=== PATIENT | female | born 1965 | race African-American/Black ===

== ENCOUNTER 2016-08-29 15:48 | Outpatient (CLI) | payer BC, OTHER | END 2016-08-29 15:49 | disposition home or self-care (01) | LOC: LABHHL 15:48 | PROVIDERS: ATTEND Surgery | DX: N63 Unspecified lump in breast (principal) | CPT/HCPCS: 88305; 88341; 88342; 88361 ==

== ENCOUNTER 2017-03-25 09:43 | Observation (INO) | payer BC ==
[2017-03-25] MEDS ORDERED: MARCAINE 0.5% INFILTRATI ONE (10:33)
[2017-03-25] MEDS ORDERED: DECADRON IV NR (10:33)
--- NOTE | 2017-03-25 10:37 | Anesthesia Consultation ---
Anesthesia Consult and Med Hx Date of service: 03/25/17 - Airway Anesthetic Teeth Evaluation: Good ROM Head & Neck: Adequate Mental/Hyoid Distance: Adequate Mallampati Class: Class II Intubation Access Assessment: Probably Good - Pulmonary Exam CTA: Yes - Cardiac Exam Cardiac Exam: RRR - Pre-Operative Health Status ASA Pre-Surgery Classification: ASA2 Proposed Anesthetic Plan: General (Never had GA - no family member ever had GA) Nerve Block: pectoral block - Central Nervous System Hx Psychiatric Problems: No - Other Systems Hx Alcohol Use: No Hx Substance Use: No Hx Cancer: Yes (breast canceer; s/p chemo)
--- NOTE | 2017-03-25 10:37 | Anesthesia Day of Surgery ---
Anesthesia Day of Surgery - Day of Surgery Patient Examined: Yes Patient H&P Reviewed: Yes Patient is NPO: Yes
[2017-03-25] MEDS ORDERED: ANCEF/STERILE WATER 2 GM/20 ML IV NR (11:00)
[2017-03-25] MEDS ORDERED: NEURONTIN PO SCH (11:00)
[2017-03-25] MEDS ORDERED: PEPCID PO NR (11:00)
[2017-03-25] MEDS ORDERED: LACTATED RINGERS 1,000 ML IV SCH ×2 (11:00→20:00)
[2017-03-25] MEDS: VERSED IV PRN ×3 (11:14→14:47)
[2017-03-25] MEDS ORDERED: XYLOCAINE 1% 20 mL ONE (12:09)
[2017-03-25] MEDS ORDERED: CLONIDINE 1,000 MCG/10 ML VIAL EP ONE (12:09)
[2017-03-25] MEDS ORDERED: BACITRACIN ONE (15:59)
[2017-03-25] MEDS ORDERED: GARAMYCIN ONE (15:59)
[2017-03-25] MEDS ORDERED: ANCEF ONE (15:59)
[2017-03-25] MEDS: ePHEDrine SULFATE IV PRN ×2 (16:00→16:14)
[2017-03-25] MEDS ORDERED: DILAUDID ONE (16:05)
[2017-03-25] MEDS ORDERED: XYLOCAINE MPF 2% ONE ×2 (16:05→20:05)
[2017-03-25] MEDS ORDERED: DIPRIVAN 10 MG/ML IV ONE (16:05)
[2017-03-25] MEDS ORDERED: ZEMURON IV ONE (16:05)
[2017-03-25] MEDS ORDERED: NACL P/F VIAL (10 ML) INFILTRATI ONE (16:45)
[2017-03-25] MEDS ORDERED: METHYLENE BLUE IRRIGATION ONE (16:45)
[2017-03-25] MEDS ORDERED: NEO SYNEPHRINE/NS Syringe(OR USE) IV ONE (17:00)
[2017-03-25] MEDS ORDERED: ANCEF IV ONE (17:02)
[2017-03-25] MEDS ORDERED: GARAMYCIN IV ONE (17:02)
[2017-03-25] MEDS ORDERED: NACL P/F VIAL (10 ML) IV ONE (17:02)
[2017-03-25] MEDS ORDERED: NACL 0.9% IR ONE (17:02)
[2017-03-25] MEDS ORDERED: BACITRACIN IR ONE (17:02)
[2017-03-25] MEDS ORDERED: WATER FOR IRRIG STERILE IR ONE (17:02)
[2017-03-25] MEDS ORDERED: DECADRON ONE (17:07)
[2017-03-25] MEDS ORDERED: ZOFRAN ONE (17:12)
[2017-03-25] MEDS ORDERED: ROBINUL ONE (17:12)
[2017-03-25] MEDS ORDERED: NEOSTIGMINE ONE (17:12)
[2017-03-25] MEDS ORDERED: LACTATED RINGERS 1,000 ML ONE ×2 (17:14→19:32)
[2017-03-25] MEDS ORDERED: NACL 0.9% 100 ML ONE (17:42)
[2017-03-25] MEDS ORDERED: TYLENOL PO PRN (19:13)
[2017-03-25] MEDS ORDERED: BENADRYL PO PRN (19:13)
[2017-03-25] MEDS ORDERED: REGLAN PO PRN (19:13)
[2017-03-25] MEDS ORDERED: ZOFRAN IV PRN (19:13)
[2017-03-25] MEDS ORDERED: SODIUM CHLORIDE FLUSH SYRINGE 10 ML IV PRN (19:13)
[2017-03-25] MEDS ORDERED: MORPHINE IV PRN (19:15)
--- NOTE | 2017-03-25 19:18 | Short Stay Summary ---
Short Stay Documentation Date of service: 03/25/17 - History H&P: obtained from office - Allergies and Medications Current Medications: Allergies No Known Allergies Allergy (Verified 03/23/17 15:47) Home Medications Medication Instructions Recorded Confirmed Last Taken Type Ondansetron [Zofran TAB] 4 mg PO PRN PRN 03/23/17 03/23/17 Unknown History Prochlorperazine Maleate 5 mg PO PRN PRN 03/23/17 03/25/17 03/06/17 History [Compazine] Active Medications Acetaminophen (Tylenol) 650 mg PO Q6H PRN PRN Reason: Pain MILD(1-3)/Fever >100.5/MILLER Cefazolin Sodium (Ancef/Sterile Water 2 Gm/20 Ml) 2 gm IV PREOP NR Stop: 03/25/17 23:59 Celecoxib (Celebrex) 200 mg PO PREOP NR Stop: 03/25/17 23:59 Last Admin: 03/25/17 11:14 Dose: 200 mg Dexamethasone (Decadron) 8 mg IV ONCE NR Stop: 03/25/17 23:59 Diphenhydramine HCl (Benadryl) 25 mg PO Q8H PRN PRN Reason: Itching Docusate Sodium (Colace) 100 mg PO BID GABRIELE Ephedrine Sulfate (Ephedrine Sulfate) 10 mg IV Q5M PRN PRN Reason: Blood Pressure Last Admin: 03/25/17 16:14 Dose: 10 mg Famotidine (Pepcid) 20 mg PO PREOP NR Stop: 03/25/17 23:59 Last Admin: 03/25/17 11:14 Dose: 20 mg Gabapentin (Neurontin) 600 mg PO PREOP GABRIELE Stop: 03/25/17 23:59 Last Admin: 03/25/17 11:14 Dose: 600 mg Lactated Ringer's (Lactated Ringers) 1,000 mls @ 75 mls/hr IV DIRECT GABRIELE Last Admin: 03/25/17 11:13 Dose: 75 mls/hr Cefazolin Sodium (Ancef/Ns 1 Gm/50 Ml) 1 gm in 50 mls @ 100 mls/hr IV Q8HR GABRIELE PRN Reason: Protocol Lactated Ringer's (Lactated Ringers) 1,000 mls @ 125 mls/hr IV DIRECT GABRIELE Metoclopramide HCl (Reglan) 10 mg PO Q6H PRN PRN Reason: Nausea And Vomiting Midazolam HCl (Versed) 2 mg IV PREOP PRN PRN Reason: Anxiety Stop: 03/25/17 23:59 Last Admin: 03/25/17 14:47 Dose: 1 mg Morphine Sulfate (Morphine) 2 mg IV Q4H PRN PRN Reason: Pain, Moderate (4-6) Ondansetron HCl (Zofran) 4 mg IV Q8H PRN PRN Reason: N/V unrelieved by Reglan Oxycodone/Acetaminophen (Percocet 5/325) 1 tab PO Q6H PRN PRN Reason: Pain, Moderate (4-6) Sodium Chloride (Sodium Chloride Flush Syringe 10 Ml) 10 ml IV PRN PRN PRN Reason: LINE FLUSH - Brief post op/procedure progress note Date of procedure: 03/25/17 Pre-op diagnosis: Right breast ca Post-op diagnosis: same Procedure: right total mastectomy with SLNB Anesthesia: GETA Findings: both bx clips present; 2 SLNs and neg on frozen Surgeon: RACHEL NERI Beef Trimmer: CUCA CHE Estimated blood loss: minimal Pathology: list (right mastectomy; 2 SLNs) Specimen disposition: to lab Condition: stable - Disposition Condition at discharge: Good Disposition: DC/TX-02 SHRT-TRM GEN HOSP IP Short Stay Discharge Plan Activity: other (no heavy lifting) Diet: regular Wound: other (may shower in 24 hours; no baths, pools or lakes) Follow up with: KUSHAL VILLALOBOS MD [Primary Care Provider] - 7 Days RACHEL NERI MD [Staff Physician] - 7 Days
[2017-03-25] MEDS ORDERED: TORADOL ONE (19:39)
[2017-03-25] MEDS ORDERED: ceFAZolin 1 GM in NACL 0.9% 20 ML IV SCH (20:00)
[2017-03-25] MEDS ORDERED: ANCEF/NS 1 GM/50 ML 1 GM/50 ML BAG IV SCH (22:00)
[2017-03-25] MEDS: COLACE PO SCH (22:40)
[2017-03-26] MEDS: PERCOCET 5/325 PO PRN ×3 (03:13→12:59)
--- NOTE | 2017-03-26 06:38 | Progress Note ---
Assessment and Plan This is a 51 year old lady with Stage II multicentric right breast cancer POD # 1 right total mastectomy with SLNB and tissue graphic arts technician placement. 1. No acute events overnight, pain in good control. 2. Right chest incision healing well. 3. JC drain education. 4. OOB to hallway. 5. D/C planning for today. Subjective Date of service: 03/26/17 Principal diagnosis: Right breast cancer of the uppper outer and upper inner quadrant Interval history: Patient underwent a right total mastectomy with SLNB and immediate tissue graphic arts technician placement on 03/25/17 Objective - Constitutional Vitals: Vital Signs - 12hr 03/25/17 03/25/17 03/25/17 19:52 19:55 20:00 Temperature 97 F L Pulse Rate 94 H 86 79 Respiratory 12 12 12 Rate Blood Pressure 108/64 101/52 101/57 Blood Pressure [Left] O2 Sat by Pulse 96 96 100 Oximetry 03/25/17 03/25/17 03/25/17 20:15 20:33 21:02 Temperature 97.5 F L 98.1 F Pulse Rate 75 72 101 H Respiratory 14 13 14 Rate Blood Pressure 92/49 91/48 Blood Pressure 101/61 [Left] O2 Sat by Pulse 100 100 96 Oximetry 03/25/17 03/26/17 03/26/17 23:18 03:13 04:13 Temperature 97.6 F Pulse Rate 86 Respiratory 16 16 16 Rate Blood Pressure 87/51 Blood Pressure [Left] O2 Sat by Pulse 99 Oximetry 03/26/17 04:53 Temperature 122.0 F H Pulse Rate 91 H Respiratory 16 Rate Blood Pressure 82/46 Blood Pressure [Left] O2 Sat by Pulse 100 Oximetry General appearance: Present: no acute distress - EENT Eyes: PERRL, EOM intact ENT: hearing intact, clear oral mucosa, dentition normal Ears: bilateral: normal - Neck Neck: supple, normal ROM - Respiratory Respiratory effort: normal Respiratory: bilateral: CTA - Breasts Breasts: other (right chest incision clean, dry and intact; no hematoma; skin well perfused; JC to bulb suction) - Cardiovascular Rhythm: regular Extremities: no ischemia, pulses intact, pulses symmetrical, No edema, normal temperature, normal color, Full ROM - Gastrointestinal General gastrointestinal: Present: soft, non-tender, non-distended Rectal Exam: deferred - Genitourinary Female genitourinary: deferred - Integumentary Integumentary: clear, warm, dry - Musculoskeletal Musculoskeletal: strength equal bilaterally - Neurologic Neurologic: CNII-XII intact - Psychiatric Psychiatric: appropriate mood/affect, intact judgment & insight, memory intact, cooperative
--- NOTE | 2017-03-26 08:55 | Progress Note ---
Subjective Date of service: 03/26/17 Principal diagnosis: Right breast cancer of the uppper outer and upper inner quadrant Interval history: 1st POD after right mastectomy with breast reconstruction Patient is in the bed, comfortable. Pain is well controlled with pain meds. Ambulated well. No nausea or vomiting. No anesthesia complications. Being discharged by the surgeon Objective - Constitutional Vitals: Vital Signs - 12hr 03/25/17 03/25/17 03/26/17 21:02 23:18 03:13 Temperature 98.1 F 97.6 F Pulse Rate 101 H 86 Respiratory 14 16 16 Rate Blood Pressure 87/51 Blood Pressure 101/61 [Left] O2 Sat by Pulse 96 99 Oximetry 03/26/17 03/26/17 04:13 04:53 Temperature 97.5 F L Pulse Rate 91 H Respiratory 16 16 Rate Blood Pressure 82/46 Blood Pressure [Left] O2 Sat by Pulse 100 Oximetry
[2017-03-26 10:41] VITALS: BP 82/47
[2017-03-26] MEDS ORDERED: PERCOCET 5/325 PO PRN (12:49)
[2017-03-26] MEDS: COLACE PO SCH (12:58)
--- NOTE | 2017-03-26 21:32 | Operative Report ---
Operative Report Operative Report: Date of Service: March 25, 2017 Preoperative diagnosis: Multicentric right breast cancer of the upper outer and upper inner quadrants Postoperative diagnosis: Same Procedure: Right total mastectomy with sentinel lymph node biopsy Surgeon: Elizabeth Hagan MD Asst.: Caryl Waterman MD Anesthesia: Gen. Findings: Two right breast clips present within right total mastecomy. 2 sentinel lymph nodes identified and negative for malignancy on frozen section of pathology Complications: None Estimated blood loss: Minima Disposition: Dr. Bender proceeded with right tissue telephone switchboard operator placement. Indications for operative procedure: This is a 51-year-old lady with stage II multicentric right breast cancer. She completed neoadjuvant chemotherapy and recommendations were to proceed with right masatectomy with SLN staging. Procedure in detail: Anesthesia placed a right pectoral muscle block prior to going to the operating room. The patient was taken to the operating room and was placed supine. Gen. anesthesia was administered. The right nipple was injected with radioisotope adn 1 cc of methylene blue dye. Right breast were prepped and draped in the normal sterile postoperative fashion. Timeout was performed. Typical mastectomy incision markings were made. Attention was taken towards the right breast. A gamma probe was inserted into the axilla to identify the sentinel lymph node location. A skin incision was made with a 10 blade knife and dissection taken down to the subcutaneous tissues. First began raising of the superior flap to the level of the clavicle superiorly and posteriorly to the pectoralis muscle. Followed by raising of the medial flap to the level of the sternum and posteriorly to the pectoralis muscle. Followed by raising of the lateral flap to the level of the latissimus dorsi muscle and taken down posteriorly. The gamma probe was inserted into the axilla and 2 sentinel lymph nodes were identified, all remaining counts were less than 10% of the highest SLN count. Lymph nodes were sent to pathology with findings negative for malignancy noted on frozen section. Then proceeded with raising of the inferior flap to the level of the inframammary fold taken posterior to the pectoralis muscle. The mastectomy/breast was removed from the pectoralis muscle without incident. The specimen was appropriately marked and sent to radiology with findings of 2 breast clips present and sent to pathology. Hemostasis was obtained with the bovie cautery. Dr. Bender then proceeded with right tissue telephone switchboard operator placment.
--- NOTE | 2017-03-27 16:37 | XRay Report ---
SPECIMEN RADIOGRAPH RIGHT BREAST: 03/25/17 09:43:00 CLINICAL: Mastectomy specimen FINDINGS: 2 biopsy clips are identified within the specimen.
--- NOTE | 2017-03-27 19:02 | Operative Report ---
PREOPERATIVE DIAGNOSIS: Personal history of breast cancer. POSTOPERATIVE DIAGNOSIS: Personal history of breast cancer. PROCEDURE: 1. Immediate breast reconstruction with Neffs 475 mL Artoura tissue cooker cleaner. 2. Placement of FlexHD acellular dermal matrix. SURGEON: Darrick Bender MD AIRCRAFT CYLINDER MECHANIC: None. ANESTHESIA: General. DRAINS: JC x 2. SPECIMENS: None. COMPLICATIONS: None. ESTIMATED BLOOD LOSS: 20 mL INDICATIONS: The patient has known history of breast cancer who is undergoing a right mastectomy and has elected to proceed with immediate breast reconstruction with a tissue cooker cleaner and acellular dermal matrix. Other viable options for reconstruction were discussed fully; however, she wishes to proceed with the above reconstructive efforts. She understands the staged nature of breast reconstruction and additional procedures will be necessary to complete the reconstructive process. The nature and technical aspects of the surgery, typical recovery period, and potential risks involved were discussed fully including, but not limited to postop bleeding, infection, pronounced scar, hematoma or seroma formation, poor wound healing or dehiscence, capsular contracture, implant leak, rupture, failure, need for replacement revision, future surgery or implant removal, failure to achieve artistic goals, postoperative pain, need for revision or future surgery. DESCRIPTION OF PROCEDURE: The patient was already anesthetized, prepped and draped following Dr. Hagan's mastectomy. The flaps were evaluated and deemed suitable for continuation of the reconstructive efforts with adequate thickness and viability. A subpectoral pocket was developed under direct vision by dividing the inferior border of the pectoralis major muscle with electrocautery. Hemostasis was meticulously achieved with electrocautery and the pocket was irrigated with copious amounts of triple antibiotic solution comprised of Ancef, gentamicin, and bacitracin solution. A triple watched segment 11 x 20 cm sheet of FlexHD ADM was placed into the breast pocket and sewn along the inferior edge to the chest wall with interrupted 2-0 PDS. The superior border of FlexHD was sewn to the inferior border of the pectoralis major muscle with interrupted 0 Vicryl suture. A deflated 475 mL Neffs Artoura tissue cooker cleaner was placed into the subpectoral sub-ADM pocket. Lateral closure was then facilitated with interrupted 0 Vicryl. The tabs were utilized to sew the device securely to the chest wall. A deep #10 JC drain was placed deeply and then a superficial 7 mm JC drain was placed superficial to the ADM, both exited through separate inferolateral stab incisions and sewn in place with 2-0 silk. The patient's closure apparently was mildly stenotic and therefore, I elected not to place any at this place, any initial saline into the tissue cooker cleaner intraoperatively. Despite this, there was no undue tension after closure. Closure was facilitated with running 2-0 Vicryl suture at the subcutaneous tissue plane, 3-0 Monocryl at the level of deep dermis in an interrupted manner, a running 4-0 Monocryl at the level of the skin in a subcuticular fashion and then DermaFlex skin glue. Fluff dressings were applied. The patient was placed in a breast binder. She was extubated and transferred to recovery area in stable condition having tolerated the procedure well. The skin edges and flaps appeared healthy and viable at termination of the case. Note that an additional peripheral section of skin was removed from the mastectomy flaps to facilitate a straight edge for closure. JOB# [id number] /ANGELICA
== END 2017-03-26 13:30 | disposition home or self-care (01) ==
LOC: OR 09:43 → OB 19:13
PROVIDERS: ADMIT Surgery; ATTEND Surgery
DX: C50.211 Malignant neoplasm of upper-inner quadrant of right female breast (principal); C50.411 Malignant neoplasm of upper-outer quadrant of right female breast; C50.811 Malignant neoplasm of overlapping sites of right female breast; Z80.3 Family history of malignant neoplasm of breast
CPT/HCPCS: 19303; 19357; 38525; 64450; 76098; 78800; 88307; 88331; 88333; 88342; 96374; 96375; A9541; C1789; G0378; J0690; J0735; J1100; J1170; J1580; J1885; J2250; J2370; J2405; J2704; J2710; J7120; Q4128; Q9968

== ENCOUNTER 2017-11-13 12:57 | Outpatient (CLI) | payer BC ==
--- NOTE | 2017-11-13 15:21 | Mammography Report ---
Screening implant mammogram: Right breast cancer and mastectomy. Standard imaging over the implant is performed bilaterally with displacement images on the left. The patient has a left submuscular implant with a generally heterogeneously dense surrounding fibroglandular pattern. There is a focal density identified just anterior to the left pectoralis muscle in the inferior medial breast. This is only identified on the implant images. No demonstrable residual fibroglandular tissue identified on the right. No prior exam for comparison on the left. CAD used. Impression: 1. Left breast density. 2. Right mastectomy with implant. Recommendation: Tomomammogram of the left breast and ultrasound if needed. If there is a prior exam available for comparison this is recommended prior to additional imaging. BI-RADS CATEGORY: 0 = Needs additional imaging evaluation ACR BI-RADS MAMMOGRAPHIC CODES: 0 = Needs additional imaging evaluation; 1 = Negative; 2 = Benign; 3 = Probably benign; 4 = Suspicious; 5 = Malignant; 6 = Known biopsy-proven malignancy COMMENT: 1. Dense breast tissue, i.e., adenosis, fibrocystic changes, etc., may obscure an underlying neoplasm. 2. Approximately 10% of cancers are not detected with mammography. 3. A negative mammography report should not delay biopsy if a clinically suspicious mass is present. Old
== END 2017-11-13 12:58 | disposition home or self-care (01) ==
LOC: SPVWC 12:57
PROVIDERS: ATTEND Surgery
DX: Z12.31 Encounter for screening mammogram for malignant neoplasm of breast (principal); Z90.11 Acquired absence of right breast and nipple
CPT/HCPCS: 77067

== ENCOUNTER 2017-12-04 09:31 | Outpatient (CLI) | payer BC ==
--- NOTE | 2017-12-04 15:43 | Ultrasound Report ---
LEFT DIGITAL DIAGNOSTIC MAMMOGRAM with DIGITAL BREAST TOMOSYNTHESIS (DBT) and LEFT BREAST ULTRASOUND: 12/04/17 09:31:00 CLINICAL: Recalled for asymmetries identified at screening digital breast tomosynthesis (DBT) exam. COMPARISON:11/13/17 FINDINGS: Implant displaced john and spot compression CC views were performed. John views negative but there is partial effacement of asymmetry on the spot CC view. Ultrasound of the left breast (including all four quadrants and the retroareolar area of each breast) was performed and demonstrated no solid mass or shadowing. A single benign cyst at 9 o'clock 4 cm from the nipple measures 5 x 4 x 5 mm. This is not appear to correlate with a mammographic finding. IMPRESSION: A single benign cyst and no suspicious finding. BI-RADS CATEGORY: 2 - - Benign RECOMMENDATION: Routine mammographic screening in one year. COMMENT: Patient follow-up letters are generated by our [employer] application.
== END 2017-12-04 09:32 | disposition home or self-care (01) ==
LOC: SPVWC 09:31
PROVIDERS: ATTEND Surgery
DX: N60.02 Solitary cyst of left breast (principal)
CPT/HCPCS: 76641; 77065; G0279

== ENCOUNTER 2018-01-12 15:11 | Outpatient (CLI) | payer BC | END 2018-01-12 15:12 | disposition home or self-care (01) | LOC: LABHHL 15:11 | PROVIDERS: ATTEND Surgery | DX: N60.02 Solitary cyst of left breast (principal); Z85.3 Personal history of malignant neoplasm of breast; Z98.890 Other specified postprocedural states | CPT/HCPCS: 88112 ==

== ENCOUNTER 2019-06-15 12:42 | Outpatient (CLI) | payer BC ==
--- NOTE | 2019-06-15 15:17 | Ultrasound Report ---
ULTRASOUND-GUIDED NEEDLE BIOPSY WITH CLIP PLACEMENT RIGHT AXILLARY LYMPH NODE INDICATION: Abnormal lymph node on PET. History of right breast cancer. COMPARISON: Report only from recent PET CT. FINDINGS: Informed consent was obtained and a timeout was called. The skin was cleansed with chloro prep. Using sterile technique, 1% lidocaine local anesthesia, 2% lidocaine with epinephrine for deep anesthesia and an 18-gauge coaxial Achieve biopsy device, ultrasound-guided biopsy of the largest right axillary lymph node was performed. 3 samples were obtained and placed in formalin. A hydromark clip was deplo yed within the lymph node. The patient tolerated the procedure well and there were no apparent complications. She left the depar tment in good condition and was given instructions for wound care and follow-up. IMPRESSION: 1. Uncomplicated single guided needle biopsy with clip placement right axillary lymph node.. Signer Name: Chucky Davis MD Signed: 06/15/2019 3:12 PM Workstation Name: [id number]
--- NOTE | 2019-06-15 15:18 | Ultrasound Report ---
ULTRASOUND RIGHT BREAST/AXILLA INDICATION: History of right breast cancer and hypermetabolic activity in a right axillary lymph node by recent P ET. COMPARISON: No relevant prior imaging study available. FINDINGS: Ultrasound demonstrated 3 right axillary lymph nodes with minimal hilar fat. The largest measures 1.3 x 0.6 cm with a cortical thickness of 4 mm. IMPRESSION: 1. 3 suspicious right axillary lymph nodes.. Signer Name: Chucky Davis MD Signed: 06/15/2019 3:14 PM Workstation Name: [id number]
== END 2019-06-15 12:43 | disposition home or self-care (01) ==
LOC: SPVWC 12:42
PROVIDERS: ATTEND Surgery
DX: R92.8 Other abnormal and inconclusive findings on diagnostic imaging of breast (principal); I89.8 Other specified noninfective disorders of lymphatic vessels and lymph nodes; Z98.890 Other specified postprocedural states
CPT/HCPCS: 38505; 76942; 88305; 88342

== ENCOUNTER 2019-12-06 11:27 | Outpatient (CLI) | payer BC ==
--- NOTE | 2019-12-06 12:37 | Ultrasound Report ---
RIGHT BREAST ULTRASOUND INDICATION: Status post right breast mastectomy with history of benign right axillary lymph node biop sy. COMPARISON: 06/15/2019, 12/04/2017. FINDINGS: A targeted ultrasound focused in the right axillary region was performed. Two borderline en larged right axillary lymph nodes are again noted. These measure up to 4 mm in maximal cortical thick ness, slightly decreased from prior measurement of 6 mm. A prior right axillary lymph node biopsy dem onstrated benign lymph node tissue. There is no interval detrimental change within these lymph nodes. No new suspicious finding is identified. IMPRESSION: Slight decrease in size of borderline enlarged right axillary lymph nodes. Patient is status post bio psy of one of the lymph nodes which was found to be benign. No new suspicious findings. Clinical donita elation and management is recommended. Patient will be due for annual left breast mammogram in one ye ar. BI-RADS Category 2: Benign. Recommend routine screening mammography in one year A "normal" or negative report should not discourage follow up or biopsy of a clinically significant f inding. A written summary of these findings will be mailed to the patient. FURTHER INFORMATION: According to the [employer], yearly mammograms are recommend ed starting at age 40 and continuing as long as a woman is in good health. Breast MRI is recommended for women with an approximately 20-25% or greater lifetime risk of breast cancer, including women wi th a strong family history of breast or ovarian cancer and women who have been treated for Hodgkin's disease. Signer Name: Jovi Han MD Signed: 12/06/2019 12:33 PM Workstation Name: [id number]
== END 2019-12-06 11:28 | disposition home or self-care (01) ==
LOC: SPVWC 11:27
PROVIDERS: ATTEND Surgery
DX: C50.411 Malignant neoplasm of upper-outer quadrant of right female breast (principal)

== ENCOUNTER 2020-11-26 10:26 | Outpatient (CLI) | payer BC ==
--- NOTE | 2020-11-26 15:39 | Mammography Report ---
DIGITAL SCREENING MAMMOGRAM WITH TOMOSYNTHESIS WITH CAD, 11/26/2020 CLINICAL INFORMATION / INDICATION: Routine Screening Mammography. TECHNIQUE: Digital left 2D and 3D mammography with tomosynthesis was obtained in the craniocaudal an d mediolateral oblique projections. Computer-Aided Detection (CAD) analysis was used for interpretat ion of this study. COMPARISON: 11/24/2019 and 11/22/2018 FINDINGS: Breast Density: The breasts are heterogeneously dense, which may obscure small masses. No dominant mass, suspicious calcifications, or architectural distortion in either breast. There is a left breast implant. IMPRESSION: No mammographic evidence of malignancy. Follow up recommendation: Routine yearly BI-RADS Category 2: Benign. A "normal" or negative report should not discourage follow up or biopsy of a clinically significant f inding. A written summary of these findings will be mailed to the patient. The patient will be entered into a mammography reporting system which will generate a reminder letter for the patient's next appointmen t at the appropriate interval. The [employer] recommends yearly mammograms starting at age 40 and continuing as l tish as a woman is in good health. Breast MRI is recommended for women with an approximate 20-25% or greater lifetime risk of breast cancer, including women with a strong family history of breast or ova nelly cancer or who have been treated for Hodgkin's disease. Signer Name: Steven Lisa MD Signed: 11/26/2020 3:35 PM Workstation Name: [id number]
== END 2020-11-26 10:27 | disposition home or self-care (01) ==
LOC: SPVWC 10:26
PROVIDERS: ATTEND Surgery
DX: Z12.31 Encounter for screening mammogram for malignant neoplasm of breast (principal)
CPT/HCPCS: 77063